=== PATIENT | female | born 1995 | race Caucasian/White ===

== ENCOUNTER 2016-08-02 23:59 | Emergency (ER) | payer OTHER ==
[~2016-08-02 23:59] MED LIST: HYDROCODON-ACE1 EAC7 PO; LORTAB 5/500 TA1 TA1 PO; LORTAB 7.51 TAB 7.5/ PO
[2016-08-03 00:40] LABS: URINE SOURCE CLEAN CATCH
[2016-08-03 00:45] LABS: URINE APPEARANCE CLEAR; URINE BILIRUBIN NEG (NEG); URINE BLOOD NEG (NEG); URINE COLOR YELLOW; URINE GLUCOSE NEG (NEG); URINE KETONE NEG (NEG); URINE LEUKOCYTE ESTERASE NEG (NEG); URINE NITRATE NEG (NEG); URINE PH 6.5 (5-8); URINE PROTEIN NEG (NEG); URINE UROBILINOGEN 0.2 MG/DL (NEG)
== END 2016-08-03 01:59 | disposition left against medical advice (07) ==
LOC: CED 23:59
PROVIDERS: Emergency Medicine
DX: Z53.21 Procedure and treatment not carried out due to patient leaving prior to being seen by health care provider (principal)
CPT/HCPCS: 81003; 84703